=== PATIENT | female | born 1965 | race African-American/Black ===

== ENCOUNTER 2017-06-01 15:40 | Outpatient (CLI) | payer BC | END 2017-06-01 15:41 | disposition home or self-care (01) | LOC: BICMAMMO 15:40 | PROVIDERS: ATTEND Internal Medicine | DX: Z12.31 Encounter for screening mammogram for malignant neoplasm of breast (principal) | CPT/HCPCS: 77063; 77067 ==

== ENCOUNTER 2017-09-20 07:29 | Outpatient (CLI) | payer BC | END 2017-09-20 07:30 | disposition home or self-care (01) | LOC: BICULT 07:29 | PROVIDERS: ATTEND Internal Medicine | DX: R10.2 Pelvic and perineal pain (principal) | CPT/HCPCS: 76856; 93976 ==

== ENCOUNTER 2018-02-22 11:39 | Outpatient (CLI) | payer BC ==
--- NOTE | 2018-02-22 13:17 | RAD ---
RIGHT HIP 2 VIEWS: HISTORY: Hip pain. FINDINGS: Mild degenerative change. Minimal spurring from the femoral head. No fracture or acute abnormality is seen. IMPRESSION: No acute process. POS: [facility]
--- NOTE | 2018-02-22 13:29 | RAD ---
RIGHT SHOULDER THREE VIEWS: History: Shoulder pain. FINDINGS: Glenohumeral joint appears normal. The AC joint normally aligned. No degenerative change at the gleno humeral joint. There is soft tissue calcification over the greater tuberosity, probably related to the rotator cuff. IMPRESSION: No acute abnormality at the shoulder. There is soft tissue calcifications which may indicate calcific tendinosis. POS: [facility]
== END 2018-02-22 11:40 | disposition home or self-care (01) ==
LOC: BICRAD 11:39
PROVIDERS: ATTEND Internal Medicine
DX: M25.511 Pain in right shoulder (principal); M25.551 Pain in right hip; M25.811 Other specified joint disorders, right shoulder
CPT/HCPCS: 36415; 83520; 86038; 86140; 86200; 86225

== ENCOUNTER 2018-05-18 08:25 | Outpatient (CLI) | payer BC ==
[2018-05-18] MEDS ORDERED: EPINEPHrine 1 MG/ML AMP ONE (09:09)
[2018-05-18] MEDS ORDERED: Lidocaine 1% PF 10 ML AMP ONE (09:09)
[2018-05-18] MEDS ORDERED: Iopamidol 300 61% 30 ML VIAL ONE (09:09)
[2018-05-18] MEDS ORDERED: Gadobenate Dimeglumine 529 MG/1 ML (20ML VIAL) ONE ×2 (09:09→12:48)
--- NOTE | 2018-05-18 11:45 | RAD ---
RIGHT SHOULDER ARTHROGRAM: HISTORY: Right shoulder pain. FLUOROSCOPY TIME: 1.0 minutes, 77.7 mGy*^m2, 2 portable fluoroscopic spot films. TECHNIQUE: Following informed consent, the patient was placed in a supine position on the fluoroscopic table. T he right shoulder was prepped and draped in the usual sterile fashion. Local anesthesia was obtained with 1% Xylocaine. A 22-gauge needle was introduced into the anterior superior glenohumeral joint a nd a mixture of Gadolinium and intravenous contrast media was injected. Spot films confirm intraarti cular location. [employer] film demonstrates a large focal area of calcific peritendinosis over the greater tuberosity. IMPRESSION: Successful right shoulder arthrogram. The patient tolerated the procedure well and is moved to MRI f or post arthrogram MRI to follow. POS: [facility]
--- NOTE | 2018-05-18 12:26 | MRI ---
MRI RIGHT SHOULDER POST ARTHROGRAM CONTRAST: HISTORY: M25.511, suspected labral tear. Right shoulder pain for 8 to 10 months, getting worse. TECHNIQUE: Multiplanar, multisequence MRI examination of the right shoulder performed, following a right shoulde r arthrogram. FINDINGS: There is evidence for a calcific focus that is overlying the insertion region of the supraspinatus te ndon, evidence for an area of focal calcific peritendinosis, with a small amount of surrounding edema and fat stranding. No evidence for a rotator cuff tear. Rotator cuff muscles are within normal cardoza its in signal and volume. The biceps tendon and the subscapularis tendons are unremarkable. The vis ualized labrum is unremarkable. IMPRESSION: Evidence for a focal area of calcific peritendinosis/peritendinitis overlying the supraspinatus tendo n insertion region. No evidence for rotator cuff tear or labral tear. POS: [facility]
== END 2018-05-18 08:26 | disposition home or self-care (01) ==
LOC: RAD 08:25
PROVIDERS: ATTEND Pediatrics Sports Medicine
DX: M25.511 Pain in right shoulder (principal); M75.31 Calcific tendinitis of right shoulder
CPT/HCPCS: 23350; A9577; J0171; J7050; Q9967

== ENCOUNTER 2019-07-15 12:30 | Outpatient (CLI) | payer BC ==
[~2019-07-15 12:30] MED LIST: Iopamidol 370 76% 100 ML VIAL ONE; Iopamidol 370 76% 50 ML VIAL FS ONE
[2019-07-15 12:56] LABS: #Eosinphils 0.1 thou/uL (0.0-0.7); #Lymphocytes 1.4 thou/uL (1.20-3.40); #Monocytes 0.9 thou/uL (0.11-0.59); #Neutrophils 8.2 thou/uL (1.40-6.50); %Basophils 0.3 % (0.0-1.0); %Eosinophils 0.6 % (0.0-10.0); %Lymphocytes 12.8 % (21.0-51.0); %Monocytes 8.5 % (0.0-10.0); %Neutrophils 77.8 % (42.0-75.0); Mean Corpuscular Hemoglobin 29.3 pg (27.0-31.0); Mean Corpuscular Volume 91.7 fL (78.0-98.0); Platelet Count 216 thou/uL (130-400); RBC Distribution Width 12.5 % (11.5-14.5); Red Blood Cell (RBC) Count 4.45 mill/uL (4.20-5.40); White Blood Cell (WBC) Count 10.5 thou/uL (4.8-10.8)
[2019-07-15 13:14] LABS: Anion Gap 13 mmol/L (10-20); BUN (Urea Nitrogen) 9 mg/dL (9.8-20.1); Calc. Creatinine Clearance 0 mL/min (70-130); Carbon Dioxide 29 mmol/L (22-29); Chloride 99 mmol/L (98-107); Estimated GFR-MDRD 77; Potassium 3.4 mmol/L (3.5-5.1); Sodium 138 mmol/L (136-145)
[2019-07-15 13:15] LABS: ALT (SGPT) 16 U/L (8-55); AST (SGOT) 13 U/L (5-34); Albumin 4.7 g/dL (3.5-5.0); Alkaline Phosphatase 76 U/L (40-110); Bilirubin, Total 0.6 mg/dL (0.2-1.2); Calcium 10.3 mg/dL (7.8-10.44); Globulin 4.2 g/dL (2.4-3.5); Glucose 104 mg/dL (70-105); Lipase 10 U/L (8-78); Protein, Total 8.9 g/dL (6.0-8.3)
[2019-07-15 13:37] LABS: Bacteria/HPF None Seen HPF (None Seen); Bilirubin Negative (Negative); Blood, Urine 1+ (Negative); Clarity Turbid (Clear); Glucose, Urine (Dipstick) Normal (Negative); Leukocyte 500 Leu/uL (Negative); Nitrite Negative (Negative); Protein, Urine (Dipstick) 30 mg/dL (Neg-Trace); Squamous Epithelial 0-3 HPF (0-3); Urobilinogen Normal mg/dL (Less than 2); WBC/HPF Greater than 50 HPF (0-3)
--- NOTE | 2019-07-15 15:19 | CT ---
CT ABDOMEN AND PELVIS WITH IV CONTRAST 07/15/2019 CLINICAL INFORMATION: Abdominal pain, unspecified location. Patient reports mid to lower left abdominal pain. COMPARISON: None. Technique: Multiple contiguous axial CT images are obtained through the abdomen and pelvis with IV contrast. Cor onal reformatted images are provided. FINDINGS: Lower Chest: within normal limits. Vessels: Abdominal aorta is normal in caliber. Abdomen: Portal vein:Patent Gallbladder: Decompressed. Liver: A 9 mm hypodense lesion is seen in the right hepatic lobe which is too small to characterize. Spleen: within normal limits. Pancreas: within normal limits. Adrenals: within normal limits. Kidneys: There is minimal to mild right hydronephrosis with mild prominence of the right ureter. Ther e is diffuse enhancement of the wall of the right ureter and renal collecting system suggesting ascending urinary tract infection. There are no parenchymal changes involving the right kidney to sug gest pyelonephritis based on CT evaluation. A difficult to characterize 1 cm lesion is seen superior pole right kidney statistically likely representing a cyst but difficult to definitely aspen cterize. No ureteral calculus is seen on the right. There is periureteral inflammatory changes and fluid seen along the course of the right ureter with minimal inflammatory stranding inferior to the r ight kidney. The ovarian vein is not well opacified on this examination. The inflammatory changes are likely secondary to the presumed ascending urinary tract infection. There is questionable tiny fi lling defect within the midportion of the ovarian vein. Ovarian vein thrombophlebitis could not be entirely excluded based on this exam. The left kidney demonstrates a normal CT appearance. Bowel: Loops of small bowel are normal in caliber. Appendix: Not definitely visualized. Peritoneum: No ascites or free air; no fluid collection. Mesentery and Retroperitoneum: No enlarged mesenteric or retroperitoneal lymph nodes. Abdominal Wall: Tiny fat-containing umbilical hernia is present. Pelvis: Reproductive Organs: A bilobed hypodense cystic appearing structure seen in the right adnexal region measuring 4 cm x 2.4 cm. Findings may represent 2 closely adjacent cysts or cyst with septation. The uterus and left adnexal structures demonstrate a normal CT appearance. Pelvis: mild stranding is seen in the right aspect of the pelvis. Bladder: Within normal limits. No urinary bladder wall thickening is present. Bones: Degenerative changes are seen in the lumbar spine greatest at the L3-4 and L5-S1 levels. IMPRESSION: 1. Findings most compatible with ascending urinary tract infection on the right with thickening and e nhancement of the fitzgerald of the entire right ureter as well as enhancement of the fitzgerald of the right renal collecting system with associated minimal to mild right hydronephrosis. No ureteral calculus is seen. 2. Inflammatory stranding along the course of the right ureter which is most likely attributable to t he ascending urinary tract infection. There is heterogeneity involving the right ovarian vein. There is overall poor enhancement of the IVC and ovarian vein, but there is questionable small fillin g defect within the mid right gonadal vein at the level of the L4 vertebral body. Associated ovarian vein thrombophlebitis is a possibility. 3. Difficult to characterize subcentimeter hypodense lesion right kidney statistically likely represe nting a cyst. 4. Bilobed hypodense cystic structure right adnexa which may represent 2 closely adjacent ovarian cys ts or cyst with septation. If indicated follow-up ultrasound examination could be performed especially if the patient is postmenopausal. 5.Above findings discussed with Dr. Weston on 07/24/2019 at 1511 hours.
== END 2019-07-15 12:31 | disposition home or self-care (01) ==
LOC: CT 12:30
PROVIDERS: ATTEND Internal Medicine
DX: N39.0 Urinary tract infection, site not specified (principal); R10.9 Unspecified abdominal pain; N13.30 Unspecified hydronephrosis
CPT/HCPCS: 74177; 80053; 81001; 83690; 85025; 87077; 87086; 87186; Q9967

== ENCOUNTER 2019-07-16 10:49 | Emergency (ER) | payer BC ==
[2019-07-16 11:23] LABS: #Lymphocytes 1.1 thou/uL (1.20-3.40); #Neutrophils 6.5 thou/uL (1.40-6.50); %Basophils 0.3 % (0.0-1.0); %Eosinophils 0.4 % (0.0-10.0); %Lymphocytes 13.1 % (21.0-51.0); %Neutrophils 75.2 % (42.0-75.0); Hemoglobin 12.2 g/dL (12.0-16.0); Mean Corpuscular HGB CONC 32.6 g/dL (32.0-36.0); Mean Corpuscular Hemoglobin 29.5 pg (27.0-31.0); Mean Corpuscular Volume 90.5 fL (78.0-98.0); Platelet Count 198 thou/uL (130-400); RBC Distribution Width 12.4 % (11.5-14.5); Red Blood Cell (RBC) Count 4.14 mill/uL (4.20-5.40); White Blood Cell (WBC) Count 8.6 thou/uL (4.8-10.8)
[2019-07-16] MEDS ORDERED: Cefepime 2 GM VIAL ONE (11:34)
[2019-07-16] MEDS ORDERED: Vancomycin 1 GM/200 ML BAG ONE (11:34)
[2019-07-16] MEDS ORDERED: Acetaminophen 500 MG TAB ONE (11:34)
[2019-07-16 11:48] LABS: ALT (SGPT) 17 U/L (8-55); AST (SGOT) 16 U/L (5-34); Albumin 4.2 g/dL (3.5-5.0); Alkaline Phosphatase 69 U/L (40-110); Anion Gap 12 mmol/L (10-20); BUN (Urea Nitrogen) 10 mg/dL (9.8-20.1); Bilirubin, Total 0.6 mg/dL (0.2-1.2); Calc. Creatinine Clearance 0 mL/min (70-130); Calcium 9.4 mg/dL (7.8-10.44); Carbon Dioxide 27 mmol/L (22-29); Chloride 99 mmol/L (98-107); Estimated GFR-MDRD 60; Glucose 127 mg/dL (70-105); Lipase 13 U/L (8-78); Potassium 3.6 mmol/L (3.5-5.1); Protein, Total 8.2 g/dL (6.0-8.3); Sodium 134 mmol/L (136-145)
--- NOTE | 2019-07-16 12:03 | RAD ---
RADIOGRAPH CHEST 1 VIEW: DATE: 07/16/2019 HISTORY: 53-year-old female with sepsis FINDINGS: There are no airspace densities, pulmonary edema, pneumothorax, or cardiomegaly. The lateral costophr enic angles are sharp. IMPRESSION: No acute cardiopulmonary findings.
[2019-07-16 12:07] LABS: Bacteria/HPF None Seen HPF (None Seen); Bilirubin Negative (Negative); Blood, Urine 1+ (Negative); Clarity Clear (Clear); Glucose, Urine (Dipstick) Normal (Negative); Leukocyte 250 Leu/uL (Negative); Nitrite Negative (Negative); Protein, Urine (Dipstick) 30 mg/dL (Neg-Trace); Squamous Epithelial 0-3 HPF (0-3); Urobilinogen Normal mg/dL (Less than 2); WBC/HPF 21-50 HPF (0-3)
[2019-07-16] MEDS ORDERED: Ketorolac Tromethamine 30 MG/ML VIAL ONE (12:58)
== END 2019-07-16 14:18 | disposition home or self-care (01) ==
LOC: ERS 10:49
DX: N12 Tubulo-interstitial nephritis, not specified as acute or chronic (principal); I10 Essential (primary) hypertension; Z79.899 Other long term (current) drug therapy
CPT/HCPCS: 71045; 80053; 81003; 81015; 83605; 83690; 84484; 85025; 87040; 87086; 96365; 96366; 96368; 96375; J0692; J1885; J3370

== ENCOUNTER 2019-07-18 11:53 | Emergency (ER) | payer BC ==
[2019-07-18 12:41] LABS: #Eosinphils 0.1 thou/uL (0.0-0.7); #Lymphocytes 1.2 thou/uL (1.20-3.40); #Monocytes 0.7 thou/uL (0.11-0.59); #Neutrophils 3.6 thou/uL (1.40-6.50); %Basophils 0.8 % (0.0-1.0); %Eosinophils 1.1 % (0.0-10.0); %Lymphocytes 22.1 % (21.0-51.0); %Monocytes 12.5 % (0.0-10.0); %Neutrophils 63.6 % (42.0-75.0); Hemoglobin 11.9 g/dL (12.0-16.0); Mean Corpuscular HGB CONC 32.7 g/dL (32.0-36.0); Mean Corpuscular Hemoglobin 29.5 pg (27.0-31.0); Mean Corpuscular Volume 90.4 fL (78.0-98.0); Mean Platelet Volume 8.6 fL (7.4-10.4); Platelet Count 214 thou/uL (130-400); RBC Distribution Width 12.1 % (11.5-14.5); Red Blood Cell (RBC) Count 4.02 mill/uL (4.20-5.40); White Blood Cell (WBC) Count 5.6 thou/uL (4.8-10.8)
[2019-07-18 13:06] LABS: ALT (SGPT) 21 U/L (8-55); AST (SGOT) 17 U/L (5-34); Albumin 4.2 g/dL (3.5-5.0); Alkaline Phosphatase 67 U/L (40-110); Anion Gap 14 mmol/L (10-20); BUN (Urea Nitrogen) 9 mg/dL (9.8-20.1); Bilirubin, Total Less than 0.2 mg/dL (0.2-1.2); Calc. Creatinine Clearance 0 mL/min (70-130); Calcium 9.8 mg/dL (7.8-10.44); Carbon Dioxide 25 mmol/L (22-29); Chloride 102 mmol/L (98-107); Estimated GFR-MDRD 71; Globulin 4.1 g/dL (2.4-3.5); Glucose 98 mg/dL (70-105); Lipase 19 U/L (8-78); Potassium 3.5 mmol/L (3.5-5.1); Protein, Total 8.3 g/dL (6.0-8.3); Sodium 137 mmol/L (136-145)
[2019-07-18] MEDS ORDERED: Morphine 4 MG/ML VIAL ONE (13:33)
[2019-07-18] MEDS ORDERED: Ondansetron PF 4 MG/2 ML Vial ONE (13:33)
[2019-07-18 14:02] LABS: Bilirubin Negative (Negative); Blood, Urine Moderate (Negative); Glucose, Urine (Dipstick) Negative (Negative); Leukocyte Negative (Negative); Nitrite Negative (Negative); Protein, Urine (Dipstick) 30 mg/dL (Neg-Trace); Urobilinogen 0.2 mg/dL (Less than 2)
[2019-07-18 14:03] LABS: Clarity Hazy (Clear)
[2019-07-18 14:22] LABS: Bacteria/HPF Rare-Few HPF (None Seen); Squamous Epithelial 0-3 HPF (0-3); WBC/HPF 0-3 HPF (0-3)
--- NOTE | 2019-07-18 15:12 | CT ---
CT abdomen and pelvis with IV contrast HISTORY: Abdomen pain. COMPARISON: 07/15/2019. FINDINGS: The lung bases are clear. Subtle stranding in the fat around the right kidney has progresse d. Relative hypoperfusion of the right kidney is very subtle but also more pronounced. There is thickening of the fitzgerald and distention of of the right renal collecting system and ureter with enhanc ement and subtle stranding in the adjacent fat. No significant free fluid. No urinary tract calcifications are evident. Left urinary system has normal appearance. Follicles arise from the ovaries with minimal adjacent flu id. Urinary bladder is incompletely distended. Appendix is not inflamed. Small cysts of the right kidney and liver are again demonstrated. Degenerative changes throughout the lumbar spine. IMPRESSION : Very mild right hydroureteronephrosis favored to be related to the inflammation.. Findings of inflamm ation involving the right kidney and ureter have progressed since the prior study.
[2019-07-18] MEDS ORDERED: Ketorolac Tromethamine 30 MG/ML VIAL ONE (15:42)
== END 2019-07-18 16:05 | disposition home or self-care (01) ==
LOC: ERS 11:53
DX: N13.30 Unspecified hydronephrosis (principal); N13.4 Hydroureter; I10 Essential (primary) hypertension; Z79.899 Other long term (current) drug therapy
CPT/HCPCS: 36415; 74177; 80053; 81003; 81015; 83690; 85025; 96361; 96374; 96375; J1885; J2270; J2405

== ENCOUNTER 2020-01-28 14:45 | Outpatient (CLI) | payer BC ==
--- NOTE | 2020-01-28 15:40 | MMO ---
Bilateral MAMMO Bilat Diag [facility]. CLINICAL HISTORY: Patient is 54 years old and is seen for diagnostic exam and palpable abnormality in both breasts. The patient has no family history of breast cancer. The patient has no personal history of cancer. The patient has a history of right Excisional Biopsy in 1985? - Benign. VIEWS: The views performed were: bilateral craniocaudal with tomosynthesis; bilateral mediolateral oblique with tomosynthesis; bilateral mediolateral with tomosynthesis; bilateral axillary tail with tomosynthesis; and bilateral exaggerated craniocaudal with tomosynthesis. FILMS COMPARED: The present examination has been compared to prior imaging studies performed at [facility] on 01/30/2019, and at [facility] on 06/01/2017 and 01/28/2020. This study has been interpreted with the assistance of computer-aided detection. MAMMOGRAM FINDINGS: The breasts are extremely dense, which may lower the sensitivity of mammography. No mammographic or sonograhic abnormality is seen at the site of palpable concern in the either breast/axilla. There are no suspicious masses, suspicious calcifications, or new areas of architectural distortion. IMPRESSION: THERE IS NO MAMMOGRAPHIC EVIDENCE OF MALIGNANCY. A ROUTINE FOLLOW-UP MAMMOGRAM IN 1 YEAR IS RECOMMENDED. THE RESULTS OF THIS EXAM WERE SENT TO THE PATIENT. ACR BI-RADS Category 2 - Benign finding MAMMOGRAPHY NOTE: 1. A negative mammogram report should not delay a biopsy if a dominant of clinically suspicious mass is present. 2. Approximately 10% to 15% of breast cancers are not detected by mammography. 3. Adenosis and dense breasts may obscure an underlying neoplasm. Reported by: LATRICIA HAHN MD Electonically Signed: [id number]
--- NOTE | 2020-01-28 15:46 | ULT ---
LIMITED RIGHT BREAST ULTRASOUND LIMITED LEFT BREAST ULTRASOUND: 01/28/20 HISTORY: Bilateral axillary lumps. FINDINGS: Correlation is made with mammograms of same date. Sonographic evaluation of the region of palpable co ncerns in the axillae on either side demonstrate no abnormality. IMPRESSION: BIRADS 2: Benign Finding(s) Routine annual screening mammography (for women over age 40). POS: [facility]
== END 2020-01-28 14:46 | disposition home or self-care (01) ==
LOC: BICMAMMO 14:45
PROVIDERS: ATTEND Internal Medicine
DX: N63.10 Unspecified lump in the right breast, unspecified quadrant (principal); N63.20 Unspecified lump in the left breast, unspecified quadrant; R22.2 Localized swelling, mass and lump, trunk
CPT/HCPCS: 77066; G0279

== ENCOUNTER 2021-03-03 09:49 | Outpatient (CLI) | payer BC | END 2021-03-03 09:50 | disposition home or self-care (01) | LOC: BICMAMMO 09:49 | PROVIDERS: ATTEND Internal Medicine | DX: Z12.31 Encounter for screening mammogram for malignant neoplasm of breast (principal) | CPT/HCPCS: 77063; 77067 ==

== ENCOUNTER 2022-03-22 10:10 | Outpatient (CLI) | payer BC | END 2022-03-22 10:11 | disposition home or self-care (01) | LOC: BICMAMMO 10:10 | PROVIDERS: ATTEND Internal Medicine | DX: Z12.31 Encounter for screening mammogram for malignant neoplasm of breast (principal); Z91.89 Other specified personal risk factors, not elsewhere classified; R22.31 Localized swelling, mass and lump, right upper limb | CPT/HCPCS: 76999; 77063; 77067 ==

== ENCOUNTER 2022-04-12 13:02 | Outpatient (CLI) | payer BC | END 2022-04-12 13:03 | disposition home or self-care (01) | LOC: TBSIIMAG 13:02 | PROVIDERS: ATTEND Neurological Surgery | DX: M47.22 Other spondylosis with radiculopathy, cervical region (principal); M50.33 Other cervical disc degeneration, cervicothoracic region; M46.03 Spinal enthesopathy, cervicothoracic region; M89.38 Hypertrophy of bone, other site; Z98.890 Other specified postprocedural states | CPT/HCPCS: 72040 ==

== ENCOUNTER 2022-06-23 15:57 | Outpatient (CLI) | payer BC | END 2022-06-23 15:58 | disposition home or self-care (01) | LOC: BICRAD 15:57 | PROVIDERS: ATTEND Neurological Surgery | DX: M54.12 Radiculopathy, cervical region (principal); Z98.1 Arthrodesis status | CPT/HCPCS: 72040 ==

== ENCOUNTER 2023-09-04 10:54 | Outpatient (CLI) | payer BC | END 2023-09-04 10:55 | disposition home or self-care (01) | LOC: BICRAD 10:54 | PROVIDERS: ATTEND Internal Medicine | DX: M54.2 Cervicalgia (principal); M47.812 Spondylosis without myelopathy or radiculopathy, cervical region; Z98.1 Arthrodesis status | CPT/HCPCS: 72040 ==

== ENCOUNTER 2024-04-17 12:19 | Outpatient (CLI) | payer BC | END 2024-04-17 12:20 | disposition home or self-care (01) | LOC: BICMAMMO 12:19 | PROVIDERS: ATTEND Internal Medicine | DX: Z12.31 Encounter for screening mammogram for malignant neoplasm of breast (principal); Z91.89 Other specified personal risk factors, not elsewhere classified | CPT/HCPCS: 77063; 77067 ==